=== PATIENT | male | born 1950 | race Asian ===

== ENCOUNTER → 2016-08-12 | Outpatient (CLI) | payer OTHER ==
[2016-08-12 14:28] LABS: ESTRADIOL LEVEL 20.5 pg/mL (7.6-42.6); TESTOSTERONE TOTAL 382 ng/dL (348-1197)
== END | disposition home or self-care (01) ==
LOC: LAB 06:59
PROVIDERS: ATTEND Urology
DX: R97.20 Elevated prostate specific antigen [PSA] (principal); E29.1 Testicular hypofunction; Z12.5 Encounter for screening for malignant neoplasm of prostate
CPT/HCPCS: 36415; 82670; 84403; G0103

== ENCOUNTER → 2016-10-17 | Outpatient (CLI) | payer OTHER ==
--- NOTE | 2016-10-17 08:43 | RAD ---
Indication ankle pain for one month. History of gout. AP oblique and lateral views of the left ankle were obtained. It should be noted that plain film findings in patient's with gout is usually a late manifestation of the disease. No bony abnormality is seen
== END | disposition home or self-care (01) ==
LOC: RAD 06:58
PROVIDERS: ATTEND Family Medicine
DX: S93.402A Sprain of unspecified ligament of left ankle, initial encounter (principal); W19.XXXA Unspecified fall, initial encounter; Y93.89 Activity, other specified; Y92.89 Other specified places as the place of occurrence of the external cause; Y99.8 Other external cause status; Z87.39 Personal history of other diseases of the musculoskeletal system and connective tissue
CPT/HCPCS: 73610

== ENCOUNTER → 2017-08-23 | Outpatient (CLI) | payer OTHER ==
[2017-08-23 08:51] LABS: PROSTATE SPECIFIC ANTIGEN 1.28 ng/mL (0.00-4.00)
== END | disposition home or self-care (01) ==
LOC: LAB 06:50
DX: Z12.5 Encounter for screening for malignant neoplasm of prostate (principal); R97.20 Elevated prostate specific antigen [PSA]
CPT/HCPCS: 36415; G0103

== ENCOUNTER → 2018-01-01 | Outpatient (CLI) | payer OTHER ==
[2018-01-02 02:24] LABS: RHEUMATOID FACTOR <10.0 IU/mL (0.0-13.9)
[2018-01-03 21:09] LABS: CYCLIC CITRULLIN PEP AB 6 units (0-19)
== END | disposition home or self-care (01) ==
LOC: LAB 07:24
DX: M25.50 Pain in unspecified joint (principal); E78.00 Pure hypercholesterolemia, unspecified; I10 Essential (primary) hypertension
CPT/HCPCS: 36415; 86038; 86200; 86431

== ENCOUNTER 2018-01-27 08:31 | Emergency (ER) | payer OTHER ==
[~2018-01-27] VITALS: Ht 172.7 cm; Wt 83.9 kg
[2018-01-27 08:46] VITALS: BP 157/88
[2018-01-27] MEDS ORDERED: DOCUSATE 100 MG/10 ML SOLUTION. PO ONE (09:00)
--- NOTE | 2018-01-27 09:08 | PHYS DOC ---
Past Medical History Past Medical History: No Pertinent History Past Surgical History: No Surgical History Alcohol Use: None Drug Use: None Adult General Chief Complaint Chief Complaint: OTHER COMPLAINTS HPI HPI Patient is a 67 year old male who presents with decreased hearing from right ear. Symptoms began tow days ago after using cotton tip swaps to clean water out of his ears. No pain, trauma or drainage. Also reports fullness in Left ear. No tinnitus, vertigo or other symptoms. [] Review of Systems Review of Systems ROS as per HPI All other systems were reviewed and found to be within normal limits, except as documented in this note. Current Medications Current Medications Current Medications Medications (Trade) Dose Ordered Sig/Rufus Start Time Stop Time Status Last Admin Dose Admin Docusate Sodium (Colace Solution) 100 mg 1X ONCE 01/27/18 09:00 01/27/18 09:01 Allergies Allergies Allergies Coded Allergies Type Severity Reaction Last Updated Verified No Known Drug Allergies 01/27/18 No Physical Exam Physical Exam Constitutional: Well developed, well nourished, no acute distress, non-toxic appearance. [] HENT: Normocephalic, atraumatic, bilateral external ears normal, soft wax cerumen impaction in both EAC, oropharynx moist, no oral exudates, nose normal. [] Eyes: PERRLA, EOMI, conjunctiva normal, no discharge. [] Neurologic: Alert and oriented X 3, normal motor function, normal sensory function, no focal deficits noted. [] Psychologic: Affect normal, judgement normal, mood normal. [] Current Patient Data Vital Signs Vital Signs Date Time Temp Pulse Resp B/P (MAP) Pulse Ox O2 Delivery O2 Flow Rate FiO2 01/27/18 08:46 98.0 88 18 157/88 (111) 97 Room Air 98.0 EKG EKG [] Radiology/Procedures Radiology/Procedures [] Course & Med Decision Making Course & Med Decision Making Pertinent Labs and Imaging studies reviewed. (See chart for details) [Colace used and ears flushed with improvement in hearing. ] Dragon Disclaimer Dragon Disclaimer This electronic medical record was generated, in whole or in part, using a voice recognition dictation system. Departure Departure Impression: Primary Impression: Ceruminous adenocarcinoma of right ear Disposition: HOME, SELF-CARE Referrals: KEIRA PERRY MD (PCP) Patient Instructions: Cerumen Impaction Additional Instructions: Avoid cotton swab use in ears as this will worsen impaction and can cause trauma to ear drums. SHERIF POLK DO Jan 27, 2018 09:08
== END 2018-01-27 10:39 | disposition home or self-care (01) ==
LOC: ER 08:31
DX: D04.21 Carcinoma in situ of skin of right ear and external auricular canal (principal)
CPT/HCPCS: 69209; 99282

== ENCOUNTER → 2018-05-24 | Outpatient (CLI) | payer OTHER ==
[2018-05-15 14:21] VITALS: BP 147/89
[~2018-05-24] MED LIST: NAPR-695 PO; ORPH100T PO
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
== END | disposition home or self-care (01) ==
LOC: RAD 10:00
PROVIDERS: ATTEND Family Medicine
DX: M50.30 Other cervical disc degeneration, unspecified cervical region (principal); M48.02 Spinal stenosis, cervical region; M46.03 Spinal enthesopathy, cervicothoracic region; M51.36 Other intervertebral disc degeneration, lumbar region; M43.16 Spondylolisthesis, lumbar region; M41.86 Other forms of scoliosis, lumbar region; I70.0 Atherosclerosis of aorta; V89.2XXD Person injured in unspecified motor-vehicle accident, traffic, subsequent encounter
CPT/HCPCS: 72050; 72110

== ENCOUNTER → 2018-06-21 | Outpatient (CLI) | payer OTHER ==
[2018-05-15 14:21] VITALS: BP 147/89
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
== END | disposition home or self-care (01) ==
LOC: US 15:20
PROVIDERS: ATTEND Family Medicine
DX: I65.23 Occlusion and stenosis of bilateral carotid arteries (principal); J32.0 Chronic maxillary sinusitis; J34.1 Cyst and mucocele of nose and nasal sinus; V89.2XXA Person injured in unspecified motor-vehicle accident, traffic, initial encounter
CPT/HCPCS: 70450; 93880

== ENCOUNTER → 2018-09-11 | Outpatient (CLI) | payer OTHER ==
[2018-05-15 14:21] VITALS: BP 147/89
== END | disposition home or self-care (01) ==
LOC: LAB 07:18
PROVIDERS: ATTEND Urology
DX: R97.20 Elevated prostate specific antigen [PSA] (principal)
CPT/HCPCS: 36415; 84153; G0103

== ENCOUNTER → 2018-10-30 | Outpatient (CLI) | payer OTHER ==
[2018-05-15 14:21] VITALS: BP 147/89
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
== END | disposition home or self-care (01) ==
LOC: KCIC MRI 11:14
PROVIDERS: ATTEND Family Medicine
DX: M48.02 Spinal stenosis, cervical region (principal); M50.221 Other cervical disc displacement at C4-C5 level; M50.322 Other cervical disc degeneration at C5-C6 level; M25.78 Osteophyte, vertebrae; Z87.828 Personal history of other (healed) physical injury and trauma
CPT/HCPCS: 72141

== ENCOUNTER → 2019-09-16 | Outpatient (CLI) | payer OTHER ==
[2018-05-15 14:21] VITALS: BP 147/89
== END ==
LOC: LAB 09:54
PROVIDERS: ATTEND Urology
DX: R97.20 Elevated prostate specific antigen [PSA] (principal)
CPT/HCPCS: 36415; G0103

== ENCOUNTER → 2020-09-25 | Outpatient (CLI) | payer OTHER ==
[2018-05-15 14:21] VITALS: BP 147/89
== END ==
LOC: LAB 07:52
PROVIDERS: ATTEND Urology
DX: Z12.5 Encounter for screening for malignant neoplasm of prostate (principal); R97.20 Elevated prostate specific antigen [PSA]
CPT/HCPCS: 36415; G0103

== ENCOUNTER → 2021-08-30 | Outpatient (CLI) | payer OTHER ==
[2018-05-15 14:21] VITALS: BP 147/89
[2021-08-30 15:06] LABS: FREE T4 1.01 ng/dL (0.76-1.46)
[2021-08-30 22:38] LABS: THYROID STIM HORMONE (TSH) 0.77 uIU/mL (0.358-3.74)
== END ==
LOC: LAB 14:19
PROVIDERS: ATTEND Nurse Practitioner
DX: N40.1 Benign prostatic hyperplasia with lower urinary tract symptoms (principal)
CPT/HCPCS: 36415; 84439; 84443